=== PATIENT | male | born 1940 | race Caucasian/White ===

== ENCOUNTER 2018-08-26 16:21 | Inpatient (IN) ==
[2018-08-26] MEDS ORDERED: Acetaminophen 325 MG Tablet PO ONE (16:29)
[2018-08-26] MEDS ORDERED: Sod Chloride 0.9% Inj 1,000 ML IV.SIG SCH ×2 (16:30)
--- NOTE | 2018-08-26 17:00 | ED ---
HPI General Chief complaint: Fever Stated complaint: AMS Time Seen by Provider: 08/26/18 16:28 Source: patient, EMS and RN notes reviewed Mode of arrival: EMS Limitations: altered mental status History of Present Illness HPI narrative: 78yM presenting with confusion and fever. The patient's says that the patient began to seem confused and "out of it" yesterday. She checked his temp last night and it was 99F, but she says today he was much more confused and unable to stand up out of his chair on his own. She says that he has a history of COPD and coughs a lot at baseline. He has not been complaining of vomiting, diarrhea, or dysuria. No known recent sick contacts. COPD, not on home O2, former smoking history. The patient does not have a local PMD. Related Data Home Medications Medication Instructions Recorded Confirmed furosemide 20 mg PO DAILY 08/26/18 08/26/18 glimepiride 4 mg PO BID 08/26/18 08/26/18 lisinopril 10 mg PO DAILY 08/26/18 08/26/18 pioglitazone 15 mg PO DAILY 08/26/18 08/26/18 triamterene-hydrochlorothiazid 1 tab PO DAILY 08/26/18 08/26/18 Allergies Allergy/AdvReac Type Severity Reaction Status Date / Time No Known Allergies Allergy Verified 08/26/18 16:36 Review of Systems ROS Unobtainable ROS Unobtainable: unobtainable due to mental status PMFSH Medical History Medical History COPD (chronic obstructive pulmonary disease) (Acute) Diabetes (Acute) Lymphedema (Acute) Prostate disorder (Acute) Sleep apnea (Acute) Surgical History Surgical History Hx of tonsillectomy (Acute) Hx of total knee replacement (Acute) Social History Social History Second Hand Smoke Exposure: No Smoking Status: Former smoker Tobacco Type: Cigarettes How Often Do You Have a Drink Containing Alcohol: Monthly or less Recent Travel in [facility] within the Last 8 Weeks: No Recent Out of Country Travel within the Last 8 Weeks: No Immunization History Tetanus Immunization: >5 Years Exam Const Other: Elderly male, appears confused [facility] Head: normocephalic and atraumatic Face and sinus: normal facial exam Eyes General: appearance normal, both eyes and all related structures Resp Other: Non-productive cough noted during exam, dyspneic, O2 sats 88% on 3L O2 NC , improved to low 90s on 4L Diminished breath sounds from bases to mid-lung wallace bilaterally, no wheezing Cardio Rate: tachycardic Rhythm: regular rhythm GI Other: Soft, distended, non-tender in all quadrants, no guarding or rebound Skin General: no rashes or lesions noted Neuro Other: Oriented to person and place but not time Appears confused, unable to finish most sentences Follows commands, moves all extremities Extrem Other: Compression stockings on bilaterally, mild pitting edema above stockings Course Initial Documented Vital Signs Pulse Rate 118 H 08/26/18 16:25 Pulse Oximetry 93 L 08/26/18 16:25 Last Documented Vital Signs Temperature 102.7 F H 08/26/18 16:37 Pulse Rate 118 H 08/26/18 16:37 Respiratory Rate 24 08/26/18 16:37 Blood Pressure 153/88 H 08/26/18 16:37 Pulse Oximetry 93 L 08/26/18 16:37 Medical Decision Making [facility] Narrative Medical decision making narrative: Assessment: 78yM presenting with confusion, fever, cough, hypoxia Plan: Sepsis workup (labs, lactate, davila-cultures) IV fluids Antipyretics CXR Flu swab Antibiotics Addendum: Patient's mental status much improved after Tylenol and IV fluids, now alert and able to answer questions. His workup reveals bibasilar infiltrates (no recent hospitalizations as per ), leukocytosis with left shift, acute kidney injury (creat 2.1, had been 1.4-1.5 in 2016), normal lactate and trop. Patient started on broad-spectrum antibiotics. I ordered a total of 2L NS bolus for the patient as his lactate is normal, he is hemodynamically stable, and already has signs of peripheral fluid overload (LE edema, abdominal distension), and his total body weight is well above ideal body weight so 30 cc/kg would not be appropriate. This patient cannot go home as he has sepsis secondary to community acquired pneumonia; he will require IV antibiotics, IV hydration, and re-evaluation at frequent intervals. I informed the patient and his of these results and plan; they understand and agree. Case discussed with Dr. Allen of [facility]. Medical Screen Exam Complete: Yes Emergency Medical Condition: Yes Differential Diagnosis Differential Diagnosis: Differential diagnosis includes, but is not limited to: sepsis/ SIRS, PNA, pleural effusion, COPD exacerbation, UTI/ pyelonephritis Given tachypnea and relative hypoxia, less suspicion for TERRITORY ACCOUNT REPRESENTATIVE infection Medical Records Medical records reviewed: Yes I reviewed the patient's medical records. Lab Data Lab results reviewed: Yes I reviewed the patient's lab results. Result diagrams: 08/26/18 16:20 08/26/18 16:20 Lab Results 08/26/18 08/26/18 08/26/18 Range/Units 16:20 16:20 16:20 CBC w Diff Auto diff final WBC 12.3 H (4.0-11.0) th/mm3 RBC 5.83 (4.50-5.90) mil/mm3 Hgb 15.1 (13.0-17.0) gm/dL Hct 48.0 (39.0-51.0) % MCV 82.2 (80.0-100.0) fL MCH 26.0 L (27.0-34.0) pg MCHC 31.6 L (32.0-36.0) % RDW 15.7 (11.6-17.2) % Plt Count 152 (150-450) th/mm3 MPV 10.4 (7.0-11.0) fL Neut % (Auto) 87.1 H (16.0-70.0) % Lymph % (Auto) 4.8 L (9.0-44.0) % Humphreys % (Auto) 5.5 (0.0-8.0) % Eos % (Auto) 0.1 (0.0-4.0) % Baso % (Auto) 2.5 H (0.0-2.0) % Neut # (Auto) 10.7 H (1.8-7.7) th/mm3 Lymph # (Auto) 0.6 L (1.0-4.8) th/mm3 Humphreys # (Auto) 0.7 (0.0-0.9) th/mm3 Eos # (Auto) 0.0 (0.0-0.4) th/mm3 Baso # (Auto) 0.3 H (0.0-0.2) th/mm3 WBC Differential . Differential Comment . Sodium 137 (136-145) meq/L Potassium 3.7 (3.5-5.1) meq/L Chloride 103 (98-107) meq/L Carbon Dioxide 24.5 (21.0-32.0) meq/L Anion Gap 10 (5-15) meq/L BUN 43 H (7-18) mg/dL Creatinine 2.10 H (0.60-1.30) mg/dL Estimated GFR 31 L (>89) mL/min Random Glucose 235 H (74-106) mg/dL Lactic Acid 1.7 (0.4-2.0) mmol/L Calcium 9.6 (8.5-10.1) mg/dL Phosphorus 1.3 L (2.5-4.9) mg/dL Magnesium 1.6 (1.5-2.5) mg/dL Total Bilirubin 0.9 (0.2-1.0) mg/dL AST 25 (15-37) U/L ALT 28 (12-78) U/L Alkaline Phosphatase 85 (45-117) U/L Troponin I (0.02-0.05) ng/mL Total Protein 7.2 (6.4-8.2) g/dL Albumin 3.2 L (3.4-5.0) g/dL 08/26/18 Range/Units 16:20 CBC w Diff WBC (4.0-11.0) th/mm3 RBC (4.50-5.90) mil/mm3 Hgb (13.0-17.0) gm/dL Hct (39.0-51.0) % MCV (80.0-100.0) fL MCH (27.0-34.0) pg MCHC (32.0-36.0) % RDW (11.6-17.2) % Plt Count (150-450) th/mm3 MPV (7.0-11.0) fL Neut % (Auto) (16.0-70.0) % Lymph % (Auto) (9.0-44.0) % Humphreys % (Auto) (0.0-8.0) % Eos % (Auto) (0.0-4.0) % Baso % (Auto) (0.0-2.0) % Neut # (Auto) (1.8-7.7) th/mm3 Lymph # (Auto) (1.0-4.8) th/mm3 Humphreys # (Auto) (0.0-0.9) th/mm3 Eos # (Auto) (0.0-0.4) th/mm3 Baso # (Auto) (0.0-0.2) th/mm3 WBC Differential Differential Comment Sodium (136-145) meq/L Potassium (3.5-5.1) meq/L Chloride (98-107) meq/L Carbon Dioxide (21.0-32.0) meq/L Anion Gap (5-15) meq/L BUN (7-18) mg/dL Creatinine (0.60-1.30) mg/dL Estimated GFR (>89) mL/min Random Glucose (74-106) mg/dL Lactic Acid (0.4-2.0) mmol/L Calcium (8.5-10.1) mg/dL Phosphorus (2.5-4.9) mg/dL Magnesium (1.5-2.5) mg/dL Total Bilirubin (0.2-1.0) mg/dL AST (15-37) U/L ALT (12-78) U/L Alkaline Phosphatase (45-117) U/L Troponin I 0.05 (0.02-0.05) ng/mL Total Protein (6.4-8.2) g/dL Albumin (3.4-5.0) g/dL Imaging Data Radiologist's impression: Chest X-Ray 08/26/18 16:29 CONCLUSION: Minimal patchy atelectasis or consolidation at the bases. ECG Data Attestation: I personally reviewed and interpreted this ECG as follows: Interpretation: Rate: 115 BPM Rhythm: Sinus with 1 PVC Golden: Normal Intervals: Normal intervals, no blocks, QTc 365 ms Q waves: None T waves: Upright, no inversions ST segments: No elevations or depressions Impression: Non-specific EKG, no changes as compared to EKG from 12/16/2015. Discharge Plan Discharge Order Discharge Orders: ED Use Only Admit Order (Routine); Ordered 08/26/18 Ordered By: Toya Villaseñor Physicians Team ED Provider: Toya Villaseñor Primary Care Provider: UNKNOWN, Rxs /Orders / Referrals /Forms Prescriptions: No Action pioglitazone 15 mg Tablet 15 mg PO DAILY RF: 0 lisinopril 10 mg Tablet 10 mg PO DAILY RF: 0 glimepiride 4 mg Tablet 4 mg PO BID RF: 0 furosemide 20 mg Tablet 20 mg PO DAILY RF: 0 triamterene-hydrochlorothiazid 75-50 mg Tablet 1 tab PO DAILY RF: 0 Status ED Status: Pending Admission
[2018-08-26 17:02] LABS: Baso # (Auto) 0.3 th/mm3 (0.0-0.2); Baso % (Auto) 2.5 % (0.0-2.0); Eos % (Auto) 0.1 % (0.0-4.0); Hemoglobin 15.1 gm/dL (13.0-17.0); Lymph # (Auto) 0.6 th/mm3 (1.0-4.8); Lymph % (Auto) 4.8 % (9.0-44.0); Mean Corpuscular HGB Conc 31.6 % (32.0-36.0); Mean Corpuscular Volume 82.2 fL (80.0-100.0); Mean Platelet Volume 10.4 fL (7.0-11.0); Mono # (Auto) 0.7 th/mm3 (0.0-0.9); Mono % (Auto) 5.5 % (0.0-8.0); Neut # (Auto) 10.7 th/mm3 (1.8-7.7); Neut % (Auto) 87.1 % (16.0-70.0); Platelet Count 152 th/mm3 (150-450); Red Blood Count 5.83 mil/mm3 (4.50-5.90); Red Cell Distribution Width 15.7 % (11.6-17.2); White Blood Count 12.3 th/mm3 (4.0-11.0)
[2018-08-26 17:04] LABS: Chloride 103 meq/L (98-107); Potassium 3.7 meq/L (3.5-5.1); Sodium 137 meq/L (136-145)
[2018-08-26 17:08] LABS: Albumin 3.2 g/dL (3.4-5.0); Anion Gap 10 meq/L (5-15); Blood Urea Nitrogen 43 mg/dL (7-18); Calcium 9.6 mg/dL (8.5-10.1); Carbon Dioxide 24.5 meq/L (21.0-32.0); Glucose,Random 235 mg/dL (74-106); Magnesium 1.6 mg/dL (1.5-2.5)
[2018-08-26 17:11] LABS: Alanine Aminotransferase 28 U/L (12-78); Aspartate Aminotransferase 25 U/L (15-37); Glomerular Filtration Rate 31 mL/min (>89)
[2018-08-26 17:12] LABS: Phosphorus 1.3 mg/dL (2.5-4.9)
[2018-08-26 17:13] LABS: Total Protein 7.2 g/dL (6.4-8.2)
[2018-08-26 17:14] LABS: Alkaline Phosphatase 85 U/L (45-117)
[2018-08-26] MEDS ORDERED: Mag Sulf 1 gm/100 ml Premix 100 ML IV.SIG ONE (17:14)
[2018-08-26] MEDS ORDERED: Potassium Phosphate Inj 30 MMOL in Sodium Chlor 0.9% Inj 250 ML IV.SIG ONE (17:14)
--- NOTE | 2018-08-26 17:55 | XR ---
EXAM DATE: 08/26/2018 5:36 PM EST AGE/SEX: 78 years / Male INDICATIONS: Fever, short of breath CLINICAL DATA: This is the patient's initial encounter. Patient reports that signs and symptoms have been present for 3 days and indicates a pain score of 0/10. MEDICAL/SURGICAL HISTORY: Chronic obstructive pulmonary disease. None. COMPARISON: [facility], CHEST SINGLE AP, 12/16/2015. . FINDINGS: The heart size is normal. There is minimal increased density at the bases. The mid and upper lungs ar e clear. The costophrenic angles are clear. CONCLUSION: Minimal patchy atelectasis or consolidation at the bases. Electronically signed by: Amandeep Seals MD 08/26/2018 5:54 PM EST
[2018-08-26] MEDS ORDERED: Azithromycin Inj 500 MG in Sodium Chlor 0.9% Inj 250 ML IV.SIG ONE (18:09)
[2018-08-26] MEDS ORDERED: Acetaminophen 325 MG Tablet PO PRN (18:50)
[2018-08-26] MEDS ORDERED: Bisacodyl 10 MG Supp RECTAL PRN (18:50)
[2018-08-26] MEDS ORDERED: Dextrose 50% in Water 50 ML Vial IV.PUSH PRN (18:53)
--- NOTE | 2018-08-26 19:10 | P.HPIM ---
History of Present Illness Primary Care Physician: UNKNOWN Chief Complaint: Altered mental status History of Present Illness: 78-year-old gentleman brought in because of worsening mental status. Patient states that he has been having 3 days of flulike symptoms with low-grade fevers productive cough of white sputum with headaches. Today he became very confused and weak unable to stand up without assistance. Which is very unusual for him, he was brought to the emergency room and found to have bilateral pneumonia, and acute respiratory distress with hypoxic respiratory failure, febrile and tachycardic with a septic picture. PMhx: Chronic lymphedema, hypertension, diabetes, COPD, obstructive sleep apnea on CPAP, BPH PSXhx: Cholecystectomy, recent right total knee arthroplasty, TURP SOChx: Quit tobacco 10 years ago, drinks alcohol on occasion, normally ambulates independently uses cane occasionally, lives at home with FAMhx: Coronary artery disease hypertension Inpatient Certification Inpatient Certification: I certify that the inpatient services were ordered in accordance with Medicare regulations governing the order. This includes certification that hospital inpatient services are reasonable and necessary and in the case of services not specified as inpatient-only under 42 CFR 419.22(n), that they are appropriately provided as inpatient services in accordance to with the 2-midnight benchmark under 43 CFR 412.3(e) Review of Systems ROS Unobtainable: unobtainable due to mental condition PMFSH Medical History Medical History COPD (chronic obstructive pulmonary disease) (Acute) Diabetes (Acute) Lymphedema (Acute) Prostate disorder (Acute) Sleep apnea (Acute) Surgical History Surgical History Hx of tonsillectomy (Acute) Hx of total knee replacement (Acute) Social History Social History Second Hand Smoke Exposure: No Smoking Status: Former smoker Tobacco Type: Cigarettes How Often Do You Have a Drink Containing Alcohol: Monthly or less Recent Travel in [facility] within the Last 8 Weeks: No Recent Out of Country Travel within the Last 8 Weeks: No Immunization History Tetanus Immunization: >5 Years Medications and Allergies Allergies Allergy/AdvReac Type Severity Reaction Status Date / Time No Known Allergies Allergy Verified 08/26/18 16:36 Home Medications Medication Instructions Recorded Confirmed Type furosemide 20 mg PO DAILY 08/26/18 08/26/18 History glimepiride 4 mg PO BID 08/26/18 08/26/18 History lisinopril 10 mg PO DAILY 08/26/18 08/26/18 History pioglitazone 15 mg PO DAILY 08/26/18 08/26/18 History triamterene-hydrochlorothiazid 1 tab PO DAILY 08/26/18 08/26/18 History Active Medications: Active Medications Acetaminophen (Tylenol) 650 mg PO Q4H PRN PRN Reason: Temp > 100.4 Al Hydroxide/Mg Hydroxide (Milk Of August Lidestiney) 30 ml PO Q12H PRN PRN Reason: Mild Constipation Albuterol (Duoneb Neb (Prn)) 1 ampul NEB Q4HR NEB PRN PRN Reason: SHORTNESS OF BREATH/WHEEZING Albuterol (Duoneb Neb (Earl)) 1 ampul NEB Q6HR NEB EARL Bisacodyl (Dulcolax Supp) 10 mg RECTAL DAILY PRN PRN Reason: SEVERE CONSITIPATION Dextrose (D50w Vial) 50 ml IV.PUSH UNSCH PRN PRN Reason: PER HYPOGLYCEMIA PROTOCOL Glucagon (Glucagon Inj) 1 mg OTHER PRN PRN PRN Reason: for Hypoglycemia Protocol Heparin Sodium (Porcine) (Heparin Inj) 5,000 units SQ Q12H EARL Sodium Chloride (Ns Inj) 1,000 mls @ 0 mls/hr IV.SIG .Q0M EARL Last Admin: 08/26/18 17:08 Dose: 999 mls/hr Sodium Chloride (Ns Inj) 1,000 mls @ 0 mls/hr IV.SIG .Q0M EARL Last Admin: 08/26/18 18:00 Dose: 999 mls/hr Potassium Phosphate 30 mmol/ (Sodium Chloride) 260 mls @ 43.333 mls/hr IV.SIG ONCE ONE Stop: 08/26/18 23:13 Azithromycin 500 mg/ Sodium (Chloride) 250 mls @ 250 mls/hr IV.SIG Q24H EARL Ceftriaxone Sodium 1,000 mg/ (Sodium Chloride) 100 mls @ 200 mls/hr IV.SIG Q24H EARL Sodium Chloride (Ns Inj) 1,000 mls @ 100 mls/hr IV.CONT .Q10H EARL Azithromycin 500 mg/ Sodium (Chloride) 250 mls @ 250 mls/hr IV.SIG Q24H EARL Insulin Human Regular (Novolin R Correctional Sugar Inj) 0 units SQ ACHS EARL; Protocol Lactulose (Lactulose Liq) 30 ml PO DAILY PRN PRN Reason: SEVERE CONSITIPATION Ondansetron HCl (Zofran Inj) 4 mg IV.PUSH Q6H PRN PRN Reason: NAUSEA OR VOMITING Senna/Docusate Sodium (Elizabeth-Colace) 1 tab PO BID EARL Sennosides (Senokot) 17.2 mg PO Q12H PRN PRN Reason: Moderate Constipation Sodium Chloride (Ns Flush) 2 ml IV.FLUSH BID EARL Sodium Chloride (Ns Flush) 2 ml IV.FLUSH PRN PRN PRN Reason: FLUSH AFTER USING IV ACCESS Sodium Chloride (Ns Flush) 2 ml IV.FLUSH BID EARL Sodium Chloride (Ns Flush) 2 ml IV.FLUSH PRN PRN PRN Reason: FLUSH AFTER USING IV ACCESS Physical Exam Vital signs: Last Vital Signs Temp 102.7 F H 08/26/18 16:37 Pulse 118 H 08/26/18 16:37 Resp 24 08/26/18 16:37 BP 153/88 H 08/26/18 16:37 Pulse Ox 93 L 08/26/18 16:37 Intake & Output 08/24/18 08/25/18 08/26/18 08/27/18 06:59 06:59 06:59 06:59 Weight 127.006 kg Narrative: GEN well-developed well-nourished 78-year-old white male Awakes to verbal, answers some questions appropriately but a bit confused and sluggish, no distress, mild increased work of respiration HEENT normocephalic atraumatic, Pupils equal reactive, sclerae anicteric, extraocular motion intact, oral mucosa dry, posterior pharynx no exudate, poor dentition no gum lip lesions noted NECK supple no JVD trachea midline thyroid smooth not enlarged ANT CHEST WALL without mass or tenderness to palpation HEART S1-S2 regular without murmur gallops or clicks, tachycardic LUNGS bilateral crackles with diminished air movements no significant wheeze, no loose rhonchi, no dullness to percussion, BACK exam is no CVA tenderness or mass ABDOMEN soft, protuberant, nondistended positive bowel sounds no guarding rebound rigidity, no palpable masses, no tenderness LYMPH NODES no cervical, axillary or inguinal adenopathy noted EXTREMITIES no clubbing, mild cyanosis nailbeds, compression stockings in place , trace edema , peripheral pulses palpable, NEUROLOGIC cranial nerves II through XII appear grossly intact, no facial asymmetry, moving all extremities with out obvious deficit, 4 out of 5 strength , unable to follow commands, no clonus or rigidity or flaccidity noted, sensation appears intact SKIN increased warmth, fair turgor, no mottling, no other rash or sores noted, purpura upper extremities Results Labs CBC & Chem 7: 08/26/18 16:20 08/26/18 16:20 Imaging Impressions Chest X-Ray 08/26/18 16:29 CONCLUSION: Minimal patchy atelectasis or consolidation at the bases. Caprini VTE Risk Assessment Caprini VTE Risk Assessment: Moderate/High Risk (score >= 2) Caprini Risk Assessment Model: Point Value = 1 Point Value = 2 Point Value = 3 Point Value = 5 Age 41-60 Minor surgery BMI > 25 kg/m2 Swollen legs Varicose veins or History of unexplained or recurrent spontaneous Oral contraceptives or hormone replacement Sepsis (< 1 month) Serious lung disease, including pneumonia (< 1 month) Abnormal pulmonary function Acute myocardial infarction Congestive heart failure (< 1 month) History of inflammatory bowel disease Medical patient at bed rest Age 61-74 Arthroscopic surgery Major open surgery (> 45 min) Laparoscopic surgery (> 45 min) Malignancy Confined to bed (> 72 hours) Immobilizing plaster cast Central venous access Age >= 75 History of VTE Family history of VTE Factor V Leiden Prothrombin [id number] Lupus anticoagulant Anticardiolipin antibodies Elevated serum homocysteine Heparin-induced thrombocytopenia Other congenital or acquired thrombophilia Stroke (< 1 month) Elective arthroplasty Hip, pelvis, or leg fracture Acute spinal cord injury (< 1 month) Prophylaxis Regimen: Total Risk Factor Score Risk Level Prophylaxis Regimen 0-1 Low Early ambulation 2 Moderate Order ONE of the following: *Sequential Compression Device (SCD) *Heparin 5000 units SQ BID 3-4 Higher Order ONE of the following medications: *Heparin 5000 units SQ TID *Enoxaparin/Lovenox 40 mg SQ daily (WT < 150 kg, CrCl > 30 mL/min) *Enoxaparin/Lovenox 30 mg SQ daily (WT < 150 kg, CrCl > 10-29 mL/min) *Enoxaparin/Lovenox 30 mg SQ BID (WT < 150 kg, CrCl > 30 mL/min) AND/OR *Sequential Compression Device (SCD) 5 or more Highest Order ONE of the following medications: *Heparin 5000 units SQ TID (Preferred with Epidurals) *Enoxaparin/Lovenox 40 mg SQ daily (WT < 150 kg, CrCl > 30 mL/min) *Enoxaparin/Lovenox 30 mg SQ daily (WT < 150 kg, CrCl > 10-29 mL/min) *Enoxaparin/Lovenox 30 mg SQ BID (WT < 150 kg, CrCl > 30 mL/min) AND *Sequential Compression Device (SCD) Assessment and Plan Plan ACUTE HYPOXIC RESPIRATORY FAILURE continue pulmonary treatments nebs IV antibiotics, oxygen ACUTE METABOLIC ENCEPHALOPATHYdue to infection, and hypoxia, fall precaution supportive care, CAP with SEPSISbilateral pulmonary infiltrates, continue IV antibiotics, cultures, pulmonary treatments PATRICK continue home CPAP consult RT HYPERTENSIONnow hypotensive, hold Lasix hold home lisinopril DIABETES [id number] continue insulin sliding scale diabetic diet, Accu-Cheks, BPH history of TURP, monitor for urinary retention CHRONIC LYMPHEDEMA continue compression stockings, resume Lasix once stable COPD without exacerbation, continue pulmonary toilet, will give 1 dose of steroids for poor air movement, OBESITY BMI 35 DVT prophylaxissubcu heparin Dispositionhome 2-3 days pending clinical course
[2018-08-26] MEDS ORDERED: MethylPREDNISolone Sod Succinate Inj 40 MG/ML Vial IV.PUSH ONE (19:44)
[2018-08-26] MEDS ORDERED: Azithromycin Inj 500 MG in Sodium Chlor 0.9% Inj 250 ML IV.SIG SCH (20:00)
[2018-08-26] MEDS: Azithromycin Inj 500 MG in Sodium Chlor 0.9% Inj 250 ML IV.SIG SCH (20:28)
[2018-08-26] MEDS: Sod Chloride 0.9% Inj 1,000 ML IV.CONT SCH (20:30)
[2018-08-26] MEDS: Heparin - SQ 10,000 UNITS/ML Vial SQ SCH (23:16)
[2018-08-26] MEDS: Insulin NovoLIN Regular Correctional Sugar Inj SQ SCH (23:33)
[2018-08-26] MEDS: Senna/Docusate Sodium 8.6/50 MG Tablet PO SCH (23:35)
[2018-08-27 00:49] LABS: Bilirubin,Urine Negative (Negative); Clarity,Urine Clear (Clear); Color,Urine Yellow (Yellw/Straw); Glucose,Urine (UA) Negative (Negative); Leukocyte Esterase,Urine Small (Negative); Nitrite,Urine Negative (Negative); Specific Gravity,Urine 1.025 (1.002-1.035); Urobilinogen,Urine 0.2 mg/dL (Less than 2)
[2018-08-27 00:53] LABS: Bacteria,Urine Occasional /hpf; Squamous Epithelial Cell,Urine 0-5 /hpf (0-5)
[2018-08-27] MEDS: Heparin - SQ 10,000 UNITS/ML Vial SQ SCH ×2 (06:08→18:19)
[2018-08-27] MEDS: Sod Chloride 0.9% Inj 1,000 ML IV.CONT SCH ×2 (06:08→11:28)
[2018-08-27 06:24] LABS: Baso % (Auto) 0.1 % (0.0-2.0); Eos % (Auto) 0.1 % (0.0-4.0); Hematocrit 41.7 % (39.0-51.0); Hemoglobin 13.8 gm/dL (13.0-17.0); Lymph # (Auto) 0.4 th/mm3 (1.0-4.8); Lymph % (Auto) 3.6 % (9.0-44.0); Mean Corpuscular HGB Conc 33.2 % (32.0-36.0); Mean Corpuscular Hemoglobin 27.2 pg (27.0-34.0); Mean Corpuscular Volume 81.8 fL (80.0-100.0); Mean Platelet Volume 9.9 fL (7.0-11.0); Mono # (Auto) 0.2 th/mm3 (0.0-0.9); Mono % (Auto) 1.7 % (0.0-8.0); Neut # (Auto) 11.2 th/mm3 (1.8-7.7); Neut % (Auto) 94.5 % (16.0-70.0); Platelet Count 121 th/mm3 (150-450); Red Blood Count 5.09 mil/mm3 (4.50-5.90); Red Cell Distribution Width 15.3 % (11.6-17.2); White Blood Count 11.8 th/mm3 (4.0-11.0)
[2018-08-27 06:31] LABS: Potassium 3.7 meq/L (3.5-5.1)
[2018-08-27 06:38] LABS: Carbon Dioxide 24.7 meq/L (21.0-32.0)
[2018-08-27] MEDS: Insulin NovoLIN Regular Correctional Sugar Inj SQ SCH ×4 (08:48→21:06)
[2018-08-27] MEDS: Senna/Docusate Sodium 8.6/50 MG Tablet PO SCH ×2 (08:49→21:02)
[2018-08-27] MEDS ORDERED: Potassium Phosphate 500 MG Soluble Tablet PO ONE (10:00)
--- NOTE | 2018-08-27 14:20 | P.PNIM ---
Subjective Interval history: 78yo m admitted with acute respirator Physical Exam Vital signs: Last Vital Signs Temp 97.1 F L 08/27/18 12:00 Pulse 103 H 08/27/18 12:00 Resp 20 08/27/18 12:00 BP 127/74 08/27/18 12:00 Pulse Ox 97 08/27/18 12:00 Intake & Output 08/25/18 08/26/18 08/27/18 08/28/18 06:59 06:59 06:59 06:59 Intake Total 3960 / 3960 1100 / 1100 Output Total 300 / 300 Balance 3660 / 3660 1100 / 1100 Weight 126.3 kg Narrative: wdwn 78yo w m awake alert no distress still a bit confused from baseline heart s1s2 reg lungs coarse fair air movment abd soft nondt pos bs no mass ext +1 pitting edema no calf tenderness Results Labs CBC & Chem 7: 08/27/18 04:47 08/27/18 04:47 Labs: Microbiology 08/26/18 16:20 Blood - Peripheral Aerobic Blood Culture - Preliminary No growth in 1 day 08/26/18 16:20 Blood - Peripheral Anaerobic Blood Culture - Preliminary No growth in 1 day 08/26/18 16:32 Blood - Peripheral Aerobic Blood Culture - Preliminary No growth in 1 day 08/26/18 16:32 Blood - Peripheral Anaerobic Blood Culture - Preliminary No growth in 1 day 08/27/18 00:40 Urine - Clean Catch Urine Streptococcus pneumoniae Antigen ( M - Final Presumptive negative for streptococcus pneumoniae antigen, suggesting no current or recent infection. Infection due to Streptococcus pneumoniae cannot be ruled out since the antigen present in the sample may be below the detection limit of the test. 08/26/18 20:30 Nasal Wash Influenza Types A,B Antigen - Final Positive for Flu A Antigen Imaging Imaging: Impressions Chest X-Ray 08/26/18 16:29 CONCLUSION: Minimal patchy atelectasis or consolidation at the bases. 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
[2018-08-27] MEDS: Glimepiride 4 MG Tablet PO SCH ×2 (17:02→21:01)
[2018-08-27] MEDS: Azithromycin Inj 500 MG in Sodium Chlor 0.9% Inj 250 ML IV.SIG SCH (18:18)
--- NOTE | 2018-08-27 19:06 | ECG ---
Date Performed: 08/26/2018 Time Performed: 16:36:16 PTAGE: 78 years EKG: SINUS TACHYCARDIA WITH OCCASIONAL VENTRICULAR PREMATURE COMPLEXES ABNORMAL QRS-T ANGLE ABNO RMAL ECG PREVIOUS TRACING : 12/16/2015 11.48 Since the previous tracing, no significant change noted DOCTOR: Kike Cobb Interpretating Date/Time 08/27/2018 19:04:15
[2018-08-28] MEDS: Heparin - SQ 10,000 UNITS/ML Vial SQ SCH ×2 (06:17→18:18)
[2018-08-28] MEDS: Senna/Docusate Sodium 8.6/50 MG Tablet PO SCH ×3 (07:51→22:36)
[2018-08-28] MEDS: Glimepiride 4 MG Tablet PO SCH ×3 (07:51→22:36)
[2018-08-28] MEDS: Insulin NovoLIN Regular Correctional Sugar Inj SQ SCH ×4 (07:52→22:36)
--- NOTE | 2018-08-28 08:38 | P.PNIM ---
Subjective Interval history: Follow-up fall at home, acute respiratory failure, acute kidney injury. Patient seen and examined, lying in bed comfortably no acute distress. Continued on 2 L nasal cannula. Denies any acute events overnight. Eating well and drinking well, no abdominal pain, nausea or vomiting. Speaking with patient he seems to be winded with conversation. Will assess how he does with PT today. Encouraged increase in ambulation and use of IS. Physical Exam Vital signs: Vital Signs 08/27/18 10:05 08/27/18 12:00 08/27/18 15:39 Temperature 97.1 F L Pulse Rate 89 103 H 89 Respiratory Rate 20 20 24 Blood Pressure 127/74 Pulse Oximetry 97 96 08/27/18 16:00 08/27/18 18:45 08/27/18 20:00 Temperature 98.9 F 97.5 F L Pulse Rate 104 H 99 H 108 H Respiratory Rate 20 18 Blood Pressure 124/66 143/69 H Pulse Oximetry 97 97 08/27/18 21:21 08/28/18 00:00 08/28/18 04:00 Temperature 97.1 F L 97.7 F Pulse Rate 97 H 103 H 98 H Respiratory Rate 18 18 18 Blood Pressure 116/59 L 112/56 L Pulse Oximetry 92 L 93 L 98 08/28/18 04:21 Temperature Pulse Rate 94 H Respiratory Rate 16 Blood Pressure Pulse Oximetry Intake & Output 08/27/18 08/28/18 08/28/18 18:59 06:59 18:59 Intake Total 2160 / 2160 1490 / 1490 Output Total 500 / 500 500 / 500 Balance 1660 / 1660 990 / 990 Weight 130.2 kg Intake: IV 1200 / 1200 250 / 250 NS Inj 1,000 ML @ 100 mls/hr IV 1100 / 1100 .CONT .Q10H JAIME Rx#:[id number] Azithromycin Inj 500 MG In NS 250 / 250 Inj 250 ML @ 250 mls/hr IV.SIG Q24H JAIME Rx#:[id number] Rocephin Inj 1,000 MG In NS Inj 100 / 100 100 ML @ 200 mls/hr IV.SIG Q24H JAIME Rx#:[id number] Oral 960 / 960 1240 / 1240 Output: Urine 500 / 500 500 / 500 Other: # Incontinent Voids 3 Date of Last Bowel Movement 08/27/18 08/27/18 08/27/18 Narrative: GENERAL: Well-developed, well-nourished patient on supplemental O2. SKIN: Warm and dry. No rash. HEAD: Normocephalic. Atraumatic. EYES: Pupils equal and round. No scleral icterus. No injection or drainage. ENT: No nasal bleeding or discharge. Mucous membranes pink and moist. NECK: Supple. Trachea midline. CARDIOVASCULAR: Regular rate and rhythm. S1, S2 noted. No murmur appreciated. RESPIRATORY: No accessory muscle use. Diminished breath sounds. Breath sounds equal bilaterally. GASTROINTESTINAL: Abdomen soft, non-tender, nondistended. Normoactive bowel sounds x4. MUSCULOSKELETAL: No obvious deformities. Extremities without clubbing, cyanosis , or edema. NEUROLOGICAL: Awake and alert. No obvious cranial nerve deficits. Motor grossly within normal limits. 5/5 muscle strength in bilateral upper and lower extremities. Normal speech. PSYCHIATRIC: Appropriate mood and affect; insight and judgment normal. Results - Labs CBC & Chem 7: 08/27/18 04:47 08/27/18 04:47 Laboratory Results - last 24 hr 08/27/18 08/27/18 08/27/18 11:33 16:31 21:00 POC Glucose 319 H 283 H 223 H 08/28/18 07:19 POC Glucose 201 H Microbiology 08/26/18 16:20 Blood - Peripheral Aerobic Blood Culture - Preliminary No growth in 1 day 08/26/18 16:20 Blood - Peripheral Anaerobic Blood Culture - Preliminary No growth in 1 day 08/26/18 16:32 Blood - Peripheral Aerobic Blood Culture - Preliminary No growth in 1 day 08/26/18 16:32 Blood - Peripheral Anaerobic Blood Culture - Preliminary No growth in 1 day 08/27/18 00:40 Urine - Clean Catch Urine Streptococcus pneumoniae Antigen ( M - Final Presumptive negative for streptococcus pneumoniae antigen, suggesting no current or recent infection. Infection due to Streptococcus pneumoniae cannot be ruled out since the antigen present in the sample may be below the detection limit of the test. Assessment and Plan - Assessment (1) Acute kidney injury Code(s): N17.9 - Acute kidney failure, unspecified Status: Acute (2) Community acquired pneumonia Code(s): J18.9 - Pneumonia, unspecified organism Status: Acute (3) Sepsis Code(s): A41.9 - Sepsis, unspecified organism Status: Acute - Plan This is an 78-year-old male patient who presented to the ED with: Sepsis Acute hypoxic respiratory failure, improving. Community-acquired pneumonia Influenza A positive -Continue pulmonary treatments nebs IV antibiotics, including Azithromycin and Ceftriaxone. -Supplemental O2 as needed to keep sats >92%, wean as tolerated. Now on RA. -Blood cultures negative to date, follow. -Continue duonebs. -Pulmonary treatments, too late for Tamiflu. Acute metabolic encephalopathy -Secondary to infection and hypoxia. -Fall precaution. -Supportive care. Hypertension, chronic -Presented with hypotension. -Hold Lasix and home lisinopril. THAO on CKD, stage unknown -Improved post ivf. Fluids stopped. -Resume lasix when improvement in renal function seen. -Labs in am. Diabetes -[id number] -Continue insulin sliding scale diabetic diet, Accu-Cheks -Monitor blood sugar trends. BPH History of TURP -Monitor for urinary retention Chronic lymphedema -Continue compression stockings, resume Lasix once stable COPD without exacerbation -Continue nebs as tolerated Obesity -BMI 35 -Diet activity when stable Obstructive sleep apnea -Continue home CPAP DVT prophylaxis: Heparin.
[2018-08-28] MEDS: Azithromycin Inj 500 MG in Sodium Chlor 0.9% Inj 250 ML IV.SIG SCH (18:17)
[2018-08-29] MEDS: Heparin - SQ 10,000 UNITS/ML Vial SQ SCH (06:23)
[2018-08-29 06:43] LABS: Baso % (Auto) 0.3 % (0.0-2.0); Eos # (Auto) 0.1 th/mm3 (0.0-0.4); Eos % (Auto) 1.4 % (0.0-4.0); Hematocrit 41.1 % (39.0-51.0); Hemoglobin 13.6 gm/dL (13.0-17.0); Lymph % (Auto) 11.9 % (9.0-44.0); Mean Corpuscular Hemoglobin 26.9 pg (27.0-34.0); Mean Corpuscular Volume 81.6 fL (80.0-100.0); Mean Platelet Volume 9.9 fL (7.0-11.0); Mono # (Auto) 0.5 th/mm3 (0.0-0.9); Mono % (Auto) 5.9 % (0.0-8.0); Neut # (Auto) 6.5 th/mm3 (1.8-7.7); Neut % (Auto) 80.5 % (16.0-70.0); Platelet Count 149 th/mm3 (150-450); Red Blood Count 5.03 mil/mm3 (4.50-5.90); White Blood Count 8.1 th/mm3 (4.0-11.0)
[2018-08-29 06:55] LABS: Potassium 3.4 meq/L (3.5-5.1)
[2018-08-29 07:00] LABS: Calcium 8.7 mg/dL (8.5-10.1)
[2018-08-29 07:01] LABS: Carbon Dioxide 26.2 meq/L (21.0-32.0)
--- NOTE | 2018-08-29 08:52 | P.DS ---
Date of admission: 08/26/18 18:59 Primary care physician: UNKNOWN Anticipated date of discharge: 08/29/18 Brief History from admission: 78-year-old gentleman brought in because of worsening mental status. Patient states that he has been having 3 days of flulike symptoms with low-grade fevers productive cough of white sputum with headaches. Today he became very confused and weak unable to stand up without assistance. Which is very unusual for him, he was brought to the emergency room and found to have bilateral pneumonia, and acute respiratory distress with hypoxic respiratory failure, febrile and tachycardic with a septic picture. PMhx: Chronic lymphedema, hypertension, diabetes, COPD, obstructive sleep apnea on CPAP, BPH PSXhx: Cholecystectomy, recent right total knee arthroplasty, TURP SOChx: Quit tobacco 10 years ago, drinks alcohol on occasion, normally ambulates independently uses cane occasionally, lives at home with FAMhx: Coronary artery disease hypertension Patient update on day of discharge: Follow-up sepsis and pneumonia. Patient seen and examined, ambulating in the room with PT, doing well without any shortness of breath. He feels much improved. Denies any chest pain. Eating well, will discharge home blood pressure medications. DS: Diagnosis - Discharge Diagnosis (1) Acute kidney injury Status: Acute (2) Community acquired pneumonia Status: Acute (3) Sepsis Status: Acute DS: Medications - Discharge Medications Prescriptions: azithromycin 500 mg PO DAILY 5 Days #5 tab doxycycline hyclate 100 mg PO BID 5 Days #10 tab DS: Summary Hospital Course: This is an 78-year-old male patient who presented to the ED with sepsis and acute hypoxic respiratory failure as well a community-acquired pneumonia and influenza A positive was started on Azithromycin and Ceftriaxone. Supplemental O2 as needed to keep sats >92%, weaned to RA and doing well. Blood cultures negative to date. Patient also presented with acute metabolic encephalopathy, secondary to infection and hypoxia. Patient also has a history of hypertension , BPH, chronic lymphedema, diabetes and COPD which were all stable during hospitalization and on discharge. Resumed home blood pressure medications. Patient presented with acute kidney injury, was given IV fluids, labs improved and creatinine within normal. Resumed home Lasix as well as ROXANN. Diabetes controlled. Rx is written. Follow-up with PCP. Home health care with PT and nursing. Activity as tolerated. Diet as tolerated. Patient stable this time will be discharged home. - Time Spent with Patient Total time spent providing and/or coordinating discharge services: Greater than 30 minutes - Quality: VTE Deep Vein Thrombosis/Pulmonary Embolism Present on Admission: No Exam Vital signs: Vital Signs 08/28/18 08:53 08/28/18 12:00 08/28/18 12:47 Temperature 98.6 F Pulse Rate 89 119 H 96 H Respiratory Rate 20 18 Blood Pressure 126/74 Pulse Oximetry 93 L 08/28/18 15:12 08/28/18 15:13 08/28/18 16:00 Temperature Pulse Rate 101 H 113 H Respiratory Rate 20 Blood Pressure Pulse Oximetry 91 L 08/28/18 17:49 08/28/18 20:00 08/28/18 20:30 Temperature 99.9 F H 98.7 F Pulse Rate 93 H 110 H 108 H Respiratory Rate 18 18 Blood Pressure 133/68 146/78 H Pulse Oximetry 94 L 94 L 08/28/18 21:03 08/29/18 00:00 08/29/18 00:30 Temperature 99.5 F Pulse Rate 105 H 108 H 108 H Respiratory Rate 18 18 Blood Pressure 136/75 Pulse Oximetry 93 L 92 L 08/29/18 03:10 08/29/18 04:00 Temperature 98.4 F Pulse Rate 105 H 103 H Respiratory Rate 18 18 Blood Pressure 139/86 Pulse Oximetry 98 Intake & Output 08/28/18 08/29/18 08/29/18 18:59 06:59 18:59 Intake Total 1500 / 1500 350 / 350 Output Total 700 / 700 800 / 800 Balance 800 / 800 -450 / -450 Weight 130.8 kg Intake: IV 350 / 350 Azithromycin Inj 500 MG In NS 250 / 250 Inj 250 ML @ 250 mls/hr IV.SIG Q24H JAIME Rx#:[id number] Rocephin Inj 1,000 MG In NS Inj 100 / 100 100 ML @ 200 mls/hr IV.SIG Q24H JAIME Rx#:[id number] Oral 1500 / 1500 Output: Urine 700 / 700 800 / 800 Other: Date of Last Bowel Movement 08/27/18 08/28/18 # Bowel Movements 1 Narrative: GENERAL: Well-developed, well-nourished patient on room air. SKIN: Warm and dry. No rash. HEAD: Normocephalic. Atraumatic. EYES: Pupils equal and round. No scleral icterus. No injection or drainage. ENT: No nasal bleeding or discharge. Mucous membranes pink and moist. NECK: Supple. Trachea midline. CARDIOVASCULAR: Regular rate and rhythm. S1, S2 noted. No murmur appreciated. RESPIRATORY: No accessory muscle use. Diminished breath sounds. Breath sounds equal bilaterally. GASTROINTESTINAL: Abdomen soft, non-tender, nondistended. Normoactive bowel sounds x4. MUSCULOSKELETAL: No obvious deformities. Extremities without clubbing, cyanosis , or edema. NEUROLOGICAL: Awake and alert. No obvious cranial nerve deficits. Motor grossly within normal limits. 5/5 muscle strength in bilateral upper and lower extremities. Normal speech. PSYCHIATRIC: Appropriate mood and affect; insight and judgment normal. Results Procedures completed during hospitalization: See above. Labs on day of discharge: Labs from last 24 hours 08/29/18 08/29/18 08/29/18 07:28 05:07 05:07 CBC w Diff Slide review pending WBC 8.1 RBC 5.03 Hgb 13.6 Hct 41.1 MCV 81.6 MCH 26.9 L MCHC 33.0 RDW 16.0 Plt Count 149 L MPV 9.9 Neut % (Auto) 80.5 H Lymph % (Auto) 11.9 Sully % (Auto) 5.9 Eos % (Auto) 1.4 Baso % (Auto) 0.3 Neut # (Auto) 6.5 Lymph # (Auto) 1.0 Sully # (Auto) 0.5 Eos # (Auto) 0.1 Baso # (Auto) 0.0 WBC Differential . Diff Scan Auto diff confirmed Differential Comment . Sodium 140 Potassium 3.4 L Chloride 105 Carbon Dioxide 26.2 Anion Gap 9 BUN 39 H Creatinine 1.30 Estimated GFR 53 L POC Glucose 164 H Random Glucose 162 H Calcium 8.7 08/28/18 08/28/18 08/28/18 22:30 16:15 11:29 CBC w Diff WBC RBC Hgb Hct MCV MCH MCHC RDW Plt Count MPV Neut % (Auto) Lymph % (Auto) Sully % (Auto) Eos % (Auto) Baso % (Auto) Neut # (Auto) Lymph # (Auto) Sully # (Auto) Eos # (Auto) Baso # (Auto) WBC Differential Diff Scan Differential Comment Sodium Potassium Chloride Carbon Dioxide Anion Gap BUN Creatinine Estimated GFR POC Glucose 262 H 228 H 248 H Random Glucose Calcium Preliminary micro results at discharge 08/26/18 16:20 Aerobic Blood Culture - Preliminary Blood - Peripheral No growth in 2 days Anaerobic Blood Culture - Preliminary No growth in 2 days 08/26/18 16:32 Aerobic Blood Culture - Preliminary Blood - Peripheral No growth in 2 days Anaerobic Blood Culture - Preliminary No growth in 2 days - Impressions ITS Impressions Chest X-Ray 08/26/18 16:29 CONCLUSION: Minimal patchy atelectasis or consolidation at the bases. Discharge Plan - Discharge Disposition Patient Disposition: /Home Health Service - Discharge Condition Condition: Stable - Discharge Order Discharge Orders: Discharge Order (Routine); Ordered 08/29/18 Ordered By: Crystal Guerrero - Discharge Details Anticipated Discharge Date: 08/29/18 - Physicians Team Primary Care Provider: UNKNOWN, Attending Provider: Carlos Rivera
--- NOTE | 2018-08-29 09:00 | P.DCO ---
- Diagnosis (1) Sepsis Status: Acute (2) Community acquired pneumonia Status: Acute (3) Acute kidney injury Status: Acute - Physical Therapy Order: Evaluate and treat, Improve ambulation, Strength and gait training - Home Health Nursing Order: Medical education, Signs/symptoms of disease process, Medication education-adverse effect, Nursing assessment with vital signs - Case Management Consult Case Management Consult-Home Health: Yes - Certification I have seen patient Prashanth Morrison on 08/29/18. My clinical findings support the need for the requested home health care services because: Deconditioned with increased weakness I certify that my clinical findings support that this patient is homebound because: Unsteady gait/balance
[2018-08-29] MEDS: Glimepiride 4 MG Tablet PO SCH (09:30)
[2018-08-29] MEDS: Senna/Docusate Sodium 8.6/50 MG Tablet PO SCH (09:30)
[2018-08-29] MEDS: Insulin NovoLIN Regular Correctional Sugar Inj SQ SCH ×2 (09:31→11:56)
[2018-08-29] MEDS ORDERED: Lisinopril 10 MG Tablet PO ONE (09:35)
[2018-08-29] MEDS ORDERED: Triamterene/HCTZ 37.5 MG/25 MG Tablet PO ONE (10:30)
[2018-08-29 11:44] VITALS: BP 128/81; PULSE 107; RESP 18; TEMP 97.2; O2SAT 94
== END 2018-08-29 15:14 | disposition home health service (06) ==
LOC: PHED 16:21 → PHEDA 18:59 → PH3 19:54
PROVIDERS: ADMIT Hospitalist; ATTEND Hospitalist